=== PATIENT | male | born 1950 | race African-American/Black ===

== ENCOUNTER 2016-10-18 12:57 | Inpatient (IN) | payer OTHER ==
[~2016-10-18] VITALS: Ht 180.3 cm; Wt 89.7 kg
[2016-10-18] MEDS ORDERED: MULTTAB67 PO (15:25)
[2016-10-18] MEDS ORDERED: LISI-515 PO (15:25)
[2016-10-22] MEDS ORDERED: HYDR-3288 PO (06:50)
[2016-10-22] MEDS ORDERED: ENOX40P SQ (06:51)
[2016-10-22] MEDS ORDERED: ASPI81CH37 CHEW (06:51)
[2016-10-22 06:52] VITALS: BP 141/81; PULSE 75; RESP 18; TEMP 98.4; O2SAT 99
[2016-10-22] MEDS ORDERED: ONDANSETRON HCL 4 MG/2 ML VIAL IVP PRN (07:00)
[2016-10-22] MEDS ORDERED: SODIUM CHLORIDE 0.9% FLUSH 5 ML FLUSH IVF PRN (07:00)
[2016-10-22] MEDS ORDERED: ZOLPIDEM TARTRATE 5 MG TAB PO PRN (07:00)
[2016-10-22] MEDS ORDERED: MORPHINE SULFATE 4 MG/ML INJ IV PUSH PRN (07:00)
[2016-10-22] MEDS ORDERED: Post-op Orders (for Pharmacy) MISC XX ONE (07:00)
[2016-10-22] MEDS ORDERED: NALOXONE HCL 0.4 MG/ML AMP IV PRN (07:00)
[2016-10-22] MEDS ORDERED: diphenhydrAMINE HCL 50 MG/ML VIAL IV PRN (07:00)
[2016-10-22] MEDS ORDERED: ALUMINUM/MAGNESIUM/SIMETH 30 ML CUP PO PRN (07:00)
[2016-10-22] MEDS ORDERED: BISACODYL 10 MG SUPP RECTAL PRN (07:00)
[2016-10-22] MEDS ORDERED: ACETAMINOPHEN/HYDROcodone 325 MG/10 MG TAB PO PRN (07:00)
[2016-10-22] MEDS ORDERED: GENTAMICIN SULFATE 80 MG/2 ML VIAL ONE (07:18)
[2016-10-22] MEDS ORDERED: SODIUM CHLORID 0.9% 500 ML IV PRN (07:45)
[2016-10-22] MEDS ORDERED: LACTATED RINGER'S 1000 ML IV PRN (07:45)
[2016-10-22] MEDS ORDERED: ceFAZolin 2 GM PREMIX 50 ML IV SCH (07:45)
[2016-10-22] MEDS ORDERED: VANCOMYCIN 1000 MG/NS 250 ML (for <70 kg) IV SCH ×2 (07:45)
[2016-10-22] MEDS ORDERED: CHLORHEXIDINE GLUCONATE 4% SOLN 120 ML BTL TOPICAL SCH (07:45)
[2016-10-22] MEDS ORDERED: INSULIN HUMAN REGULAR 1,000 UNITS/10 ML VIAL SQ PRN (07:45)
[2016-10-22] MEDS ORDERED: POVIDONE IODINE 7.5% SCRUB 118 ML BOTTLE TOPICAL SCH (07:45)
[2016-10-22] MEDS ORDERED: POVIDONE IODINE 5% (ANTISEPSIS KIT) 4 APPLICATIONS EACH NARE PRN (07:45)
[2016-10-22] MEDS ORDERED: CHLORHEXIDINE GLUCONATE 2 % 1 PACK (2 CLOTHS) TOPICAL PRN (07:45)
[2016-10-22] MEDS ORDERED: METOPROLOL TARTRATE 25 MG TAB PO PRN (07:45)
[2016-10-22] MEDS ORDERED: IBUP800T23 PO (07:56)
[2016-10-22] MEDS ORDERED: DEXAMETHASONE SOD PHOS 20 MG/5 ML VIAL IV SCH (08:00)
[2016-10-22] MEDS: SODIUM CHLORIDE 0.9% FLUSH 5 ML FLUSH IVF SCH ×2 (09:00→19:43)
[2016-10-22] MEDS: LISINOPRIL 20 MG TAB PO SCH (09:00)
[2016-10-22] MEDS ORDERED: TRANEXAMIC ACID IV SCH (09:30)
[2016-10-22] MEDS ORDERED: SODIUM CHLORIDE 0.9% IV SCH (09:30)
[2016-10-22] MEDS ORDERED: DEXAMETHASONE SOD PHOS 4 MG/ML VIAL ONE (09:53)
[2016-10-22] MEDS ORDERED: FAMOTIDINE 20 MG/2 ML VIAL ONE (09:53)
[2016-10-22] MEDS ORDERED: MIDAZOLAM HCL 2 MG/2 ML VIAL ONE (09:53)
[2016-10-22] MEDS ORDERED: TRANEXAMIC PERI-ARTICULAR 3,000 MG/NS 100 ML P-ARTICULR SCH ×2 (10:00)
[2016-10-22] MEDS ORDERED: BUPIVACAINE LIPOSO PF 1.3% INJ 20 ML in SODIUM CHLORIDE 0.9% INJ 40 ML P-ARTICULR SCH (10:00)
[2016-10-22] MEDS ORDERED: PROPOFOL 200 MG/20 ML AMP IV ONE (11:41)
[2016-10-22] MEDS ORDERED: ePHEDrine/NS 25 MG/5 ML SYR IV ONE (11:41)
[2016-10-22] MEDS ORDERED: NEOSTIGMINE 3 MG/3 ML SYR IV ONE (11:42)
[2016-10-22] MEDS ORDERED: LACTATED RINGER'S 1000 ML INJ 1,000 ML IV ONE (11:42)
[2016-10-22] MEDS ORDERED: ONDANSETRON HCL 4 MG/2 ML VIAL IV PUSH ONE (11:42)
[2016-10-22] MEDS ORDERED: PHENYLEPH/NS 1000 MCG/10 ML SYR IV ONE (11:42)
[2016-10-22] MEDS ORDERED: DO NOT ADM ANY ANTICOAGULANT DRUGS PRN (12:22)
[2016-10-22] MEDS ORDERED: fentaNYL CITRATE 250 MCG/5 ML AMP ONE (12:48)
[2016-10-22] MEDS ORDERED: *morphine SULFATE 8 MG/ML PERIprocedure ONLY ONE ×2 (12:49→13:23)
[2016-10-22] MEDS: SODIUM CHLOR 0.9% 1000 ML INJ 1,000 ML IV SCH ×2 (12:59→16:48)
--- NOTE | 2016-10-22 13:05 | HHI.DCPOC ---
Discharge Care Plan Diagnosis: (1) Primary localized osteoarthrosis, pelvic region and thigh Your Health Problems Are: Difficulty with ADL Goals to Promote Your Health * To prevent worsening of your condition and complications * To maintain your health at the optimal level Directions to Meet Your Goals Take your medications as prescribed Follow your dietary instruction Follow activity as directed Keep your appointments as scheduled Take your immunizations and boosters as scheduled If your symptoms worsen call your PCP, if no PCP go to Urgent Care Center or Emergency Room Smoking is Dangerous to Your Health. Avoid second hand smoke Call the 24-hour hour crisis hotline for domestic abuse at Donnie Casper Oct 22, 2016 13:05
--- NOTE | 2016-10-22 13:05 | HHI.FF ---
Face to Face Verification Diagnosis: (1) Primary localized osteoarthrosis, pelvic region and thigh Physical Therapy Gait training, Safety evaluation, Transfer training, bed to chair Hip: Total hip, Protocol: Right, Progress to weight bearing Right LE Weight Bearing: WB as tolerated Nursing RN: 3 days/week x 2 weeks Nursing: Debbie teaching, Dressing changes Dressing Changes: Daily dressing change I have seen patient Kwaku CarreonJr on 10/22/16. My clinical findings support the need for the requested home health care services because: Limited ability to care for self High risk of falls I certify that my clinical findings support that this patient is homebound because: Post-op weakness Unsteady gait/balance Donnie Casper Oct 22, 2016 13:05
[2016-10-22] MEDS ORDERED: COMMODE 3-IN-11 MIS (13:08)
[2016-10-22] MEDS ORDERED: WALKER WHEELS/F1 MIS (13:08)
[2016-10-22 13:50] VITALS: BP 128/69; PULSE 74; RESP 16; TEMP 96.6; O2SAT 98
--- NOTE | 2016-10-22 14:54 | RADRPT ---
EXAM DATE/TIME: 10/22/2016 12:56 [facility] COMPARISON: No previous studies available for comparison. INDICATIONS : Post right hip surgery. MEDICAL HISTORY : None. SURGICAL HISTORY : None. ENCOUNTER: Initial ACUITY: 1 day PAIN SCORE: Non-responsive. LOCATION: Right hip and pelvis FINDINGS: Patient has a bipolar hip prosthesis on the right side. This appears well-placed. There is some air in the soft tissues. This is not an unexpected finding following surgery. The patient does have se faisal degenerative change in the left hip region with severe narrowing of the hip joint, there is subc ondylar cystic change at the acetabular and superior femoral head on the left. There is some osteoph yte formation at the lateral superior acetabulum on the left. The pubic symphysis and sacroiliac tigist nts are normally aligned. CONCLUSION: 1. Bipolar hip prosthesis on the right in good position. 2. Severe degenerative change at the left hip joint. Klaus Casanova MD on October 22, 2016 at 14:27 Board Certified Radiologist. This report was verified electronically.
--- NOTE | 2016-10-22 15:07 | RADRPT ---
EXAM DATE/TIME: 10/22/2016 10:44 [facility] COMPARISON: No previous studies available for comparison. INDICATIONS : Right anterior hip replacement. MEDICAL HISTORY : Hypertension. Osteoarthritis. SURGICAL HISTORY : None. ENCOUNTER: Initial ACUITY: 1 day PAIN SCORE: Non-responsive. LOCATION: Right hip. FINDINGS: There is a bipolar hip prosthesis in place. The prosthetic components appear well placed. Skin stap les are seen. CONCLUSION: Successful placement of a right hip prosthesis. Klaus Casanova MD on October 22, 2016 at 13:47 Board Certified Radiologist. This report was verified electronically.
[2016-10-22 16:00] VITALS: BP 147/88; PULSE 73; RESP 18; TEMP 96.6; O2SAT 98
[2016-10-22 16:11] VITALS: O2SAT 93
[2016-10-22 19:00] VITALS: BP 125/68; PULSE 80; RESP 15; TEMP 97.5; O2SAT 94
--- NOTE | 2016-10-22 22:14 | HHI.HP ---
[facility] Service [facility] Hospitalists Primary Care Physician [facility] Admission Diagnosis Diagnoses: Travel History International Travel<30 Days: No Contact w/Intl Traveler <30 Da: No Traveled to Known Affected Are: No Past Family Social History Allergies: Coded Allergies: Meloxicam (Verified Allergy, Severe, NAUSEA AND DIZZINESS, 10/22/16) Physical Exam Vital Signs Vital Signs Date Time Temp Pulse Resp B/P Pulse Ox O2 Delivery O2 Flow Rate FiO2 10/22/16 19:00 97.5 80 15 125/68 94 10/22/16 16:11 93 21 10/22/16 16:00 96.6 73 18 147/88 98 10/22/16 13:50 96.6 74 16 128/69 98 10/22/16 13:36 97.7 70 12 136/68 100 Nasal Cannula 2 10/22/16 13:30 69 13 138/73 99 Nasal Cannula 2 10/22/16 13:15 71 12 140/75 100 Nasal Cannula 2 10/22/16 13:00 68 17 139/67 97 Nasal Cannula 2 10/22/16 12:45 74 17 147/75 98 Nasal Cannula 2 10/22/16 12:30 77 14 146/81 98 Nasal Cannula 2 10/22/16 12:28 98.1 77 14 139/78 94 Nasal Cannula 2 10/22/16 06:52 98.4 75 18 141/81 99 Physical Exam GENERAL: This is a well-nourished, well-developed patient, in no apparent distress. SKIN: No rashes, ecchymoses or lesions. Cool and dry. HEAD: Atraumatic. Normocephalic. No temporal or scalp tenderness. EYES: Pupils equal round and reactive. Extraocular motions intact. No scleral icterus. No injection or drainage. ENT: Nose without bleeding, purulent drainage or septal hematoma. Throat without erythema, tonsillar hypertrophy or exudate. Uvula midline. Airway patent. NECK: Trachea midline. No JVD or lymphadenopathy. Supple, nontender, no meningeal signs. CARDIOVASCULAR: Regular rate and rhythm without murmurs, gallops, or rubs. RESPIRATORY: Clear to auscultation. Breath sounds equal bilaterally. No wheezes , rales, or rhonchi. GASTROINTESTINAL: Abdomen soft, non-tender, nondistended. No hepato-splenomegaly , or palpable masses. No guarding. MUSCULOSKELETAL: Extremities without clubbing, cyanosis, or edema. No joint tenderness, effusion, or edema noted. No calf tenderness. Negative Homans sign bilaterally. NEUROLOGICAL: Awake and alert. Cranial nerves II through XII intact. Motor and sensory grossly within normal limits. Five out of 5 muscle strength in all muscle groups. Normal speech. Laboratory Laboratory Tests Test 10/22/16 08:00 Blood Type O POSITIVE Antibody Screen NEGATIVE Blood Bank Comment Physician Certification Order for Inpatient Services The services are ordered in accordance with Medicare regulations or non- Medicare payer requirements, as applicable. In the case of services not specified as inpatient-only, they are appropriately provided as inpatient services in accordance with the 2-midnight benchmark. days is the estimated time the patient will need to remain in the hospital, assuming treatment plan goals are met and no additional complications. Milvia Carpenter DO Oct 22, 2016 22:14
--- NOTE | 2016-10-22 23:25 | PD.CONS ---
HPI Service [facility] Hospitalists Consult Requested By Orthopedic surgery. Reason for Consult Medical management. Primary Care Physician [facility] Diagnoses: History of Present Illness Mr. Carreon is a [facility] with a history of hypertension who underwent elective right total hip arthroplasty on 10/22/2016. Hospitalist service was consulted for medical management. Patient has been on Lisinopril for hypertension for about a year. At the time of this interview, patient denies any chest pain, shortness of breath, fever, chills. Denies any changes in bowel or bladder habits. Denies any abdominal pain. Review of Systems Except as stated in HPI: all other systems reviewed are Neg Past Family Social History Allergies: Coded Allergies: Meloxicam (Verified Allergy, Severe, NAUSEA AND DIZZINESS, 10/22/16) Past Medical History Pericarditis in the remote past. Bunion on the left foot Osteoarthritis. Past Surgical History Left foot bunionectomy Reported Medications Lisinopril 20mg Qday Ibuprofen 800mg Qday PRN Multi-vitamin [place] 7.5/325mg PRN Family History Mother - heart failure Father - Parkinson's disease. Social History Denies using tobacco or illicit drugs. However, he reports drinking 3 beers a night. Physical Exam Vital Signs Vital Signs Date Time Temp Pulse Resp B/P Pulse Ox O2 Delivery O2 Flow Rate FiO2 10/22/16 19:00 97.5 80 15 125/68 94 10/22/16 16:11 93 21 10/22/16 16:00 96.6 73 18 147/88 98 10/22/16 13:50 96.6 74 16 128/69 98 10/22/16 13:36 97.7 70 12 136/68 100 Nasal Cannula 2 10/22/16 13:30 69 13 138/73 99 Nasal Cannula 2 10/22/16 13:15 71 12 140/75 100 Nasal Cannula 2 10/22/16 13:00 68 17 139/67 97 Nasal Cannula 2 10/22/16 12:45 74 17 147/75 98 Nasal Cannula 2 10/22/16 12:30 77 14 146/81 98 Nasal Cannula 2 10/22/16 12:28 98.1 77 14 139/78 94 Nasal Cannula 2 10/22/16 06:52 98.4 75 18 141/81 99 Physical Exam GENERAL: This is a well-nourished, well-developed patient, in no apparent distress. SKIN: No rashes, ecchymoses or lesions. Warm and dry. HEAD: Atraumatic. Normocephalic. No temporal or scalp tenderness. EYES: Pupils equal round and reactive. No injection or drainage. ENT: Nose without bleeding, purulent drainage or septal hematoma. Airway patent. NECK: Trachea midline. No lymphadenopathy. Supple, nontender, no meningeal signs. CARDIOVASCULAR: Regular rate and rhythm without murmurs, gallops, or rubs. No JVD. RESPIRATORY: Clear to auscultation. Breath sounds equal bilaterally. No wheezes , rales, or rhonchi. GASTROINTESTINAL: Abdomen soft, non-tender, nondistended. No guarding. MUSCULOSKELETAL: Extremities without clubbing, cyanosis, or edema. s/p right total hip arthroplasty. NEUROLOGICAL: Awake and alert. Cranial nerves II through XII intact. No focal neurological deficits. Normal speech. Laboratory Laboratory Tests Test 10/22/16 08:00 Blood Type O POSITIVE Antibody Screen NEGATIVE Blood Bank Comment Imaging Last Impressions Hip and Pelvis X-Ray 10/22/16 0000 Signed Impressions: Service Date/Time: Saturday, October 22, 2016 12:56 - CONCLUSION: 1. Bipolar hip prosthesis on the right in good position. 2. Severe degenerative change at the left hip joint. Klaus Casanova MD Hip X-Ray 10/22/16 0000 Signed Impressions: Service Date/Time: Saturday, October 22, 2016 10:44 - CONCLUSION: Successful placement of a right hip prosthesis. Klaus Casanova MD Assessment and Plan Problem List: (1) Primary localized osteoarthrosis, pelvic region and thigh ICD Code: M16.10 Status: Acute (2) HTN (hypertension) ICD Code: I10 Status: Acute Assessment and Plan Mr. Carreon is a 66 year old male with a history of osteoarthritis, hypertension who underwent right total hip arthroplasty on 10/22/2016. - Right hip osteoarthritis - s/p right sided CAROL. - Lovenox 40mg Qday X 10 doses starting 10/23/2016. - Colace, Dulcolax supp for bowel regimen. - [place] 10-325mg 1-2 tablets PRN for pain. - Hypertension - Continue Lisinopril 20mg Qday. - Encouraged patient to avoid using NSAIDs. - Also encouraged patient to discuss with this PCP regarding switching anti- hypertensives to Calcium channel blockers. - Lisinopril in Non-Diabetic patients is not recommended as the first line medication. - CCB (Nifedipine, Amlodipine) would be preferable. - Patient will discuss with this PCP as medications may need to be titrated. Full code. Lovenox starting 10/23/2016 Thank you for the consult. We will continue to follow this patient with you. Milvia Carpenter DO Oct 22, 2016 23:25
[2016-10-23] VITALS: BP 100/58; PULSE 80; RESP 16; TEMP 98.8; O2SAT 94
[2016-10-23] MEDS: SODIUM CHLOR 0.9% 1000 ML INJ 1,000 ML IV SCH (03:54)
[2016-10-23 04:00] VITALS: BP 110/73; PULSE 79; RESP 16; TEMP 97.5; O2SAT 95
[2016-10-23 07:18] LABS: HEMATOCRIT 36.9 % (39.0-51.0); MEAN CELL VOLUME 89.8 FL (80.0-100.0); MEAN CORPUSCULAR HEMOGLOBIN 29.3 PG (27.0-34.0); MEAN CORPUSCULAR HGB CONC 32.7 % (32.0-36.0); PLATELET COUNT 226 TH/MM3 (150-450); RED BLOOD COUNT 4.11 MIL/MM3 (4.50-5.90); RED CELL DISTRIBUTION WIDTH 14.1 % (11.6-17.2); REVIEW FLAG FINAL; WHITE BLOOD COUNT 8.6 TH/MM3 (4.0-11.0)
[2016-10-23 07:40] LABS: BICARBONATE 25.8 MEQ/L (21.0-32.0); POTASSIUM 3.6 MEQ/L (3.5-5.1)
[2016-10-23 08:00] VITALS: BP 117/55; PULSE 84; RESP 18; TEMP 99.3; O2SAT 93
--- NOTE | 2016-10-23 08:45 | PD.ORT.PN ---
Subjective Post Op Day #: 1 Subjective Remarks doing very well. ready to go home. Objective Vitals Vital Signs Date Time Temp Pulse Resp B/P Pulse Ox O2 Delivery O2 Flow Rate FiO2 10/23/16 04:00 97.5 79 16 110/73 95 10/23/16 00:00 98.8 80 16 100/58 94 10/22/16 19:00 97.5 80 15 125/68 94 10/22/16 16:11 93 21 10/22/16 16:00 96.6 73 18 147/88 98 10/22/16 13:50 96.6 74 16 128/69 98 10/22/16 13:36 97.7 70 12 136/68 100 Nasal Cannula 2 10/22/16 13:30 69 13 138/73 99 Nasal Cannula 2 10/22/16 13:15 71 12 140/75 100 Nasal Cannula 2 10/22/16 13:00 68 17 139/67 97 Nasal Cannula 2 10/22/16 12:45 74 17 147/75 98 Nasal Cannula 2 10/22/16 12:30 77 14 146/81 98 Nasal Cannula 2 10/22/16 12:28 98.1 77 14 139/78 94 Nasal Cannula 2 I/O 10/22/16 10/22/16 10/22/16 10/23/16 10/23/16 10/23/16 07:00 15:00 23:00 07:00 15:00 23:00 Intake Total 1760 ml 450 ml 480 ml Output Total 1350 ml 200 ml 1050 ml Balance 410 ml 250 ml -570 ml Intake Oral 360 ml 450 ml 480 ml IV Total 100 ml Other 1300 ml Output Urine Total 950 ml 200 ml 1050 ml Estimated Blood Loss 400 ml # Voids 1 # Bowel Movements 0 0 0 Result Diagram: 10/23/16 0642 10/23/16 0642 Objective Remarks in bed, nad incision no erythema, no drainage neg homans nvi Assessment & Plan Ortho Post Op Day #: 1 Problem List: Assessment and Plan s/p R CAROL wbat daily dressing changes lovenox d/c planning home with hhc and pt - cleared today after PT if pain under control. rx in chart f/up dr. araujo 2 weeks Donnie Casper Oct 23, 2016 08:45
--- NOTE | 2016-10-23 08:50 | MP ---
cc: IVÁN SHETH M.D. DATE OF SURGERY 10/22/2016 PREOPERATIVE DIAGNOSIS Right hip osteoarthritis. POSTOPERATIVE DIAGNOSIS Right hip osteoarthritis. PROCEDURE Right total hip arthroplasty. SURGEON Dr. Iván Sheth [employer] SALESPERSON Remi Casper PA-C ANESTHESIA General. ESTIMATED BLOOD LOSS 200 cc COMPLICATIONS None. IMPLANTS USED DePuy Corail size 13 Press-Fit standard offset femoral stem, size 54 solid Ruth Gription cup, 36-mm highly cross-linked neutral liner, 36-mm ceramic head, +8.5 neck. JUSTIFICATION This patient is a 66-year-old male with a history of severe end-stage osteoarthritis involving the right hip. He has severe disabling pain with standing, walking, ambulation, weight-bearing activities, even severe pain at rest. His pain interferes with his activities of daily living. He has failed greater than 3 months of nonoperative conservative treatment to include medications, therapy, activity modification, home exercise program, ambulatory assistive aids. The patient is not overweight. X-rays of the right hip reveal severe end-stage osteoarthritis with [id number] joint space narrowing, subchondral sclerosis, subchondral cyst, osteophyte formation and subluxation. The patient was counseled as to the risks, benefits and alternatives to the above-named proposed surgical procedure. He did wish to proceed with surgery. PROCEDURE IN DETAIL Written consent was obtained. The patient was identified by name, taken to the operating room, placed supine on the operating room table. General anesthesia was administered to the patient as well as 2 grams of IV Ancef and 1 gram of IV vancomycin. With the patient transferred to the [place] table, the right and left feet were placed in the padded traction boots. The right hip and right lower extremity were prepped and draped using isopropyl alcohol Hibiclens solution and Chloraprep solution. After a time-out was performed, a longitudinal incision was made over the anterolateral aspect of the right hip. The facial layer was incised. Dissection was carried over the tensor fascia jamal and underneath the rectus femoris to allow exposure to the anterior hip capsule. A capsulotomy incision was performed. An oscillating saw was used to perform a femoral neck cut. The osteoarthritic femoral head and neck component was removed. A 10 blade scalpel was used to excise the labrum. Sequential reaming began with size 47 and was carried through a size 54 mm. A solid Ruth Gription cup was implanted at approximately 45 degrees of abduction and 10 degrees of anteversion. There was excellent purchase and fixation. After implantation of the cup, a screw hole eliminator was placed, followed by the neutral liner. The liner was impacted into place and tested for stability. The leg was then externally rotated, extended and adducted. The capsule was released off the inner surface of the greater trochanter to allow for elevation and lateralization of the femur. A box cutting osteotome was used to gain entrance into the intramedullary canal of the femur. This was followed by a canal finder and sequential broaching up to size 13. A calcar planer was used to plane the calcar. Trial head and neck components were evaluated and the final components implanted in place with the current implants. The leg could achieve 70 degrees of external rotation and extension all the way to the ground without evidence of anterior instability. Fluoroscopic imaging showed appropriate implantation of the components. The surgical wound was thoroughly irrigated with sterile saline pulse lavage antibiotic impregnated solution. The fascial layer was closed with #1 Vicryl suture, the subcutaneous layer with 2-0 Vicryl suture. The skin was closed with Dermabond. Sterile dressings were applied. The patient tolerated the procedure well, no intraoperative complications noted. Remi Casper, physician assistant manager quality management certified, was present during the entire procedure to include patient positioning and the procedure itself. The medical necessity of a physician assistant manager quality management was indicated in this case due to the complexity of the procedure. He assisted with positioning of the leg, retraction of muscle, tendon and neurovascular structures. He assisted with preparation of the bone and also implantation of the prosthetic replacement. Iván Sheth MD JWM/SSB /12:25 PM /8:36 AM
[2016-10-23] MEDS: LISINOPRIL 20 MG TAB PO SCH (09:00)
[2016-10-23] MEDS: SODIUM CHLORIDE 0.9% FLUSH 5 ML FLUSH IVF SCH (09:00)
[2016-10-23 09:53] VITALS: O2SAT 95
--- NOTE | 2016-10-23 10:44 | HHI.PR ---
Subjective Remarks Follow up right total hip arthroplasty. Patient seen and examined. Family at bedside. Patient denies any acute events overnight. Pain well controlled. Tolerating PO intake, denies any nausea or vomiting. Vitals stable, BP well controlled. Plan for discharge today at PT. Patient understanding of follow up with PCP post discharge regarding BP medication management. Objective Vitals Vital Signs Date Time Temp Pulse Resp B/P Pulse Ox O2 Delivery O2 Flow Rate FiO2 10/23/16 09:53 95 21 10/23/16 04:00 97.5 79 16 110/73 95 10/23/16 00:00 98.8 80 16 100/58 94 10/22/16 19:00 97.5 80 15 125/68 94 10/22/16 16:11 93 21 10/22/16 16:00 96.6 73 18 147/88 98 10/22/16 13:50 96.6 74 16 128/69 98 10/22/16 13:36 97.7 70 12 136/68 100 Nasal Cannula 2 10/22/16 13:30 69 13 138/73 99 Nasal Cannula 2 10/22/16 13:15 71 12 140/75 100 Nasal Cannula 2 10/22/16 13:00 68 17 139/67 97 Nasal Cannula 2 10/22/16 12:45 74 17 147/75 98 Nasal Cannula 2 10/22/16 12:30 77 14 146/81 98 Nasal Cannula 2 10/22/16 12:28 98.1 77 14 139/78 94 Nasal Cannula 2 I/O 10/22/16 10/22/16 10/22/16 10/23/16 10/23/16 10/23/16 07:00 15:00 23:00 07:00 15:00 23:00 Intake Total 1760 ml 450 ml 480 ml Output Total 1350 ml 200 ml 1050 ml Balance 410 ml 250 ml -570 ml Intake Oral 360 ml 450 ml 480 ml IV Total 100 ml Other 1300 ml Output Urine Total 950 ml 200 ml 1050 ml Estimated Blood Loss 400 ml # Voids 1 # Bowel Movements 0 0 0 Result Diagram: 10/23/16 0642 10/23/16 0642 Imaging Last Impressions Hip and Pelvis X-Ray 10/22/16 0000 Signed Impressions: Service Date/Time: Saturday, October 22, 2016 12:56 - CONCLUSION: 1. Bipolar hip prosthesis on the right in good position. 2. Severe degenerative change at the left hip joint. Klaus Casanova MD Hip X-Ray 10/22/16 0000 Signed Impressions: Service Date/Time: Saturday, October 22, 2016 10:44 - CONCLUSION: Successful placement of a right hip prosthesis. Klaus Casanova MD Objective Remarks GENERAL: Well-nourished, well-developed patient, in no apparent distress sitting up in chair. SKIN: No rashes, ecchymoses or lesions. Warm and dry. HEENT: Atraumatic. Normocephalic. No temporal or scalp tenderness. Pupils equal round and reactive. No injection or drainage. Nose without bleeding.. Airway patent. NECK: Trachea midline. Supple. No JVD. CARDIOVASCULAR: Regular rate and rhythm. No murmur appreciated. RESPIRATORY: Clear to auscultation. Breath sounds equal bilaterally. No wheezes , rales, or rhonchi. GASTROINTESTINAL: Abdomen soft, non-tender, nondistended. No guarding. MUSCULOSKELETAL: Extremities without clubbing, cyanosis, or edema. s/p right total hip arthroplasty. NEUROLOGICAL: Awake and alert. Cranial nerves II through XII intact. No focal neurological deficits. Normal speech. A/P Problem List: (1) Primary localized osteoarthrosis, pelvic region and thigh ICD Code: M16.10 Status: Acute (2) HTN (hypertension) ICD Code: I10 Status: Acute Assessment and Plan Mr. Carreon is a 66 year old male with a history of osteoarthritis, hypertension who underwent right total hip arthroplasty on 10/22/2016. Right hip osteoarthritis - s/p right sided CAROL. - Lovenox 40mg Qday X 10 doses starting 10/23/2016. - No BM since surgery, Colace x 1 now and scheduled. Encouraged RN at bedside to give PRN Dulcolax supp. - [place] 10-325mg 1-2 tablets PRN for pain. Pain controlled. - Hypertension - Continue Lisinopril 20mg Qday. - Encouraged patient to avoid using NSAIDs. - Reiterated the importance of patient to discuss with this PCP regarding switching anti-hypertensives to Calcium channel blockers. Patient understands and states he will follow up with his PCP regarding BP medication management. - Lisinopril in Non-Diabetic patients is not recommended as the first line medication. CCB (Nifedipine, Amlodipine) would be preferable. Discussed with patient, RN and Dr. Carpenter. Renetta Jaramillo Oct 23, 2016 10:44
[2016-10-23] MEDS ORDERED: DOCUSATE SODIUM 100 MG CAP PO ONE (10:45)
[2016-10-23] MEDS ORDERED: ENOXAPARIN SODIUM 40 MG/0.4 ML SYRINGE SQ SCH (11:00)
[2016-10-23] MEDS: ACETAMINOPHEN/HYDROcodone 325 MG/10 MG TAB PO PRN ×2 (11:43→15:24)
[2016-10-23] MEDS ORDERED: DOCUSATE SODIUM 100 MG CAP PO SCH (21:00)
[2016-10-23] MEDS ORDERED: MULTIVITAMINS/MINERALS THERAPEUTIC TAB PO SCH (21:00)
--- NOTE | 2016-10-27 20:20 | MD ---
cc: IVÁN ANG ADMISSION DATE: 10/22/2016 DISCHARGE DATE: 10/23/2016 ADMISSION DIAGNOSIS: Severe degenerative osteoarthritis, right hip. DISCHARGE DIAGNOSIS: Severe degenerative osteoarthritis, right hip. HISTORY OF PRESENT ILLNESS: Mr. Carreon is a 66-year-old male who presented to the [facility] for evaluation by Dr. Iván Ang regarding his progressive bilateral hip pain, right greater than left. He notes the pain has been bothering him for greater than six months duration and the patient tries to stay very active but currently his hip pain is inhibiting his exercise regimen. He notes his hip pain is a severe aching sensation aggravated by weightbearing activities and has no alleviating factors at this point in time. He previously has been treated at the [facility] for his ailment. He does have x-ray evidence of severe degenerative osteoarthritis of bilateral hips. While in the office, the patient was counseled as to the diagnosis and treatment options, risks, benefits, indications were all discussed in great detail. The patient did elect proceed with surgical intervention to include a right total hip arthroplasty. HOSPITAL COURSE: Date of surgery 10/22/2016 right total hip arthroplasty anterior approach. Postop after surgery the patient was admitted to [facility] where he received appropriate medical management, pain control, DVT prophylaxis as well as physical therapy. DISCHARGE: Once being discharged from the hospital the patient is cleared to go home where he will receive home health care and home physical therapy. He is in stable condition and may weight-bear as tolerated. He has been instructed on proper wound care management. He has been provided prescriptions for pain control as well as DVT prophylaxis medication and also been provided a follow-up appointment in approximately two weeks from the date of surgery. The patient and the patient's have asked appropriate questions, which have been answered. The patient has been discharged. Dictated by Remi Casper PA-C. MD TAMIKA Riley/JG /8:13 AM /8:16 PM
== END 2016-10-23 15:49 | disposition home health service (06) | DRG 470 ==
LOC: HSDI 10-22 06:37 → N06B 10-22 13:48
PROVIDERS: ADMIT Orthopaedic Surgery Sports Medicine; ATTEND Orthopaedic Surgery Sports Medicine
PROC: 0SR901A Replacement of Right Hip Joint with Metal Synthetic Substitute, Uncemented, Open Approach (ICD-10-PCS; principal; 2016-10-22 09:56)
DX: M16.11 Unilateral primary osteoarthritis, right hip (principal); I10 Essential (primary) hypertension
CPT/HCPCS: 73502; 76000; 80048; 85027; 86850; 86900; 86901; 94150; C1776; C9290; J0690; J1100; J1580; J1650; J2250; J2270; J2370; J2405; J2710; J3010; J3370; J7030; J7050; J7120